=== PATIENT | male | born 2000 | race Caucasian/White ===

== ENCOUNTER 2021-05-23 15:51 | Emergency (ER) | payer OTHER ==
[~2021-05-23] VITALS: Ht 190.5 cm; Wt 124.7 kg
[2021-05-23] MEDS ORDERED: KEFLEX250 MG PO (16:59)
== END 2021-05-23 17:15 | disposition home or self-care (01) ==
LOC: FER 15:51
DX: S61.310A Laceration without foreign body of right index finger with damage to nail, initial encounter (principal); W31.9XXA Contact with unspecified machinery, initial encounter; Y92.89 Other specified places as the place of occurrence of the external cause; Y99.0 Civilian activity done for income or pay
CPT/HCPCS: 73140